=== PATIENT | female | born 1960 | race Caucasian/White ===

== ENCOUNTER 2019-05-19 23:41 | Emergency (ER) | payer OTHER ==
[~2019-05-19] VITALS: Ht 180.3 cm; Wt 74.8 kg
[2019-05-19 23:45] VITALS: BP 151/79
[2019-05-20] MEDS ORDERED: IBUPROFEN 800 MG TAB PO ONE (00:30)
[2019-05-20 00:46] VITALS: BP 151/79
== END 2019-05-20 00:48 | disposition home or self-care (01) ==
LOC: MED 23:41
DX: S93.402A Sprain of unspecified ligament of left ankle, initial encounter (principal); W18.39XA Other fall on same level, initial encounter; Y92.89 Other specified places as the place of occurrence of the external cause; Y93.89 Activity, other specified; Y99.8 Other external cause status
CPT/HCPCS: 73610; 99283

== ENCOUNTER 2020-09-28 22:25 | Emergency (ER) | payer OTHER ==
[~2020-09-28] VITALS: Ht 180.3 cm; Wt 76.7 kg
[2020-09-28 22:50] VITALS: BP 143/90
--- NOTE | 2020-09-28 22:52 | NUR ---
TO LOBBY A/W BED AMBULATORY
--- NOTE | 2020-09-29 00:06 | NUR ---
EKG PERFORMED IN PHLEBOTOMY CHAIR WITH SCREEN. EKG READS SINUS RHTYHM @ 84
[2020-09-29 00:36] LABS: BASOPHILS % (AUTO) 0.6 % (0.0-2.0); EOSINOPHILS # (AUTO) 0.1 K/uL (0-0.4); EOSINOPHILS % (AUTO) 2.2 % (0.0-4.0); HEMATOCRIT 46.2 % (36-48); HEMOGLOBIN 15.3 g/dL (12.0-16.0); LYMPHOCYTES # (AUTO) 1.3 K/uL (2.5-16.5); LYMPHOCYTES % (AUTO) 26.4 % (20.5-51.1); MEAN CORPUSCULAR HEMOGLOBIN 30 pg (27-31); MEAN CORPUSCULAR HGB CONC 33 g/dL (33-37); MEAN CORPUSCULAR VOLUME 90.2 fL (80-94); MONOCYTES # (AUTO) 0.5 K/uL (0.8-1.0); MONOCYTES % (AUTO) 10.9 % (1.7-9.3); NEUTROPHILS # (AUTO) 2.9 K/uL (1.8-7.7); NEUTROPHILS % (AUTO) 59.9 % (42.2-75.2); PLATELET COUNT (AUTO) 254 K/uL (140-450); RED BLOOD CELL COUNT(AUTO) 5.12 MIL/uL (4.20-5.40); RED CELL DISTRIBUTION WIDTH 13.6 % (11.6-13.7); WHITE BLOOD COUNT (AUTO) 4.8 K/uL (4.8-10.8)
--- NOTE | 2020-09-29 00:44 | NUR ---
NOVEL COVID SWAB COLLECTED AND WALKED TO LAB.
[2020-09-29 00:46] LABS: ANION GAP 13.3 (8-16); CARBON DIOXIDE 27.6 mmol/L (21-32); CREATININE 0.9 mg/dL (0.6-1.3); POTASSIUM 3.9 mmol/L (3.5-5.1)
[2020-09-29 01:09] VITALS: BP 145/91
--- NOTE | 2020-09-29 01:09 | NUR ---
Patient discharged with v/s stable. Written and verbal after care instructions given and explained. Patient verbalized understanding. Ambulatory with steady gait. All questions addressed prior to discharge. Advised to follow up with PMD.
--- NOTE | 2020-10-01 17:38 | NUR ---
Covid results received from lab. Results = POSITIVE. Hard copy requested from lab and placed in infection controls mailbox.
== END 2020-09-29 01:09 | disposition home or self-care (01) ==
LOC: MED 22:25
DX: U07.1 COVID-19 (principal); I10 Essential (primary) hypertension
CPT/HCPCS: 36415; 80048; 84484; 85025; 93005; 99284; U0003

== ENCOUNTER 2020-10-09 13:08 | Emergency (ER) | payer OTHER ==
[~2020-10-09] VITALS: Ht 180.3 cm; Wt 77.1 kg
[2020-10-09 13:50] VITALS: BP 150/56
--- NOTE | 2020-10-09 13:50 | NUR ---
59/F requesting a second covid test to return to work. Denies symptoms. Denies any complaints.
--- NOTE | 2020-10-09 14:00 | NUR ---
COVID SWAB SENT TO LAB.
--- NOTE | 2020-10-09 14:03 | NUR ---
Note brenda in EDM - 10/09/20 at 1422 by [facility] Patient discharged with v/s stable. Written and verbal after care instructions given and explained. Patient alert, oriented and verbalized understanding of instructions. Ambulatory with steady gait. All questions addressed prior to discharge. ID band removed. Patient advised to follow up with PMD. Rx of TYLENOL given. Patient educated on indication of medication including possible reaction and side effects. Opportunity to ask questions provided and answered.
--- NOTE | 2020-10-11 14:14 | NUR ---
Indeterminate covid result received from lab. Copy given to infection control
== END 2020-10-09 14:03 | disposition home or self-care (01) ==
LOC: MED 13:08
DX: R53.83 Other fatigue (principal); Z20.828 Contact with and (suspected) exposure to other viral communicable diseases; Z98.890 Other specified postprocedural states
CPT/HCPCS: 99283; U0003

== ENCOUNTER 2021-07-10 23:40 | Emergency (ER) | payer OTHER ==
[~2021-07-10] VITALS: Ht 180.3 cm; Wt 77.1 kg
[2021-07-10 23:53] VITALS: BP 142/73
--- NOTE | 2021-07-10 23:53 | NUR ---
TO BED AMBULATORY
--- NOTE | 2021-07-10 23:58 | NUR ---
60 YO F BIB SELF WITH C/C OF SORE THROAT, H/A 8/10, EARACHE (LEFT EAR), AND BODY ACHES X1WEEK. PT STATED SHE WAS SEEN AT [facility] 1 WK AGO AND WAS NOT GIVEN MEDICATION, PT STATES SHE HAS NOT GOTTEN BETTER. PT HAS LYMPH SWELLING ON LEFT SIDE OF NECK. PT THINKS SHE HAD A FEVER LAST NIGHT. DENIES N/V/D. +CHILLS. PT STATED SHE TESTED NEG FOR COVID AT [facility]. PT GIVEN SOCKS AND WARM BLANKET. ALL NEEDS MET AT THIS TIME. BED LOCKED IN LOWEST POSITION, SIDE RAILS X1. HX:ARTHRITIS RX:DENIES NKA
--- NOTE | 2021-07-11 00:35 | NUR ---
PT IS LAYING BACK IN BED, AWAKE AND ALERT. ALL NEEDS MET AT THIS TIME. PT IS STABLE CONDITION. BED LOCKED IN LOWEST POSITION, SIDE RAILS X1.
[2021-07-11] MEDS ORDERED: NAPR-1704 PO (01:03)
[2021-07-11] MEDS ORDERED: FLONAS NS (01:03)
[2021-07-11 01:07] VITALS: BP 142/73
--- NOTE | 2021-07-11 01:07 | NUR ---
Patient discharged with v/s stable. Written and verbal after care instructions given and explained. Patient alert, oriented and verbalized understanding of instructions. Ambulatory with steady gait. All questions addressed prior to discharge. ID band removed. Patient advised to follow up with PMD. Rx of narposyn and flonase nasal given. Patient educated on indication of medication including possible reaction and side effects. Opportunity to ask questions provided and answered.
== END 2021-07-11 01:07 | disposition home or self-care (01) ==
LOC: MED 23:40
DX: J06.9 Acute upper respiratory infection, unspecified (principal); R03.0 Elevated blood-pressure reading, without diagnosis of hypertension
CPT/HCPCS: 99283